=== PATIENT | female | born 1995 | race Two or more races ===

== ENCOUNTER 2017-10-20 03:41 | Emergency (ER) | payer OTHER ==
--- NOTE | 2017-10-20 04:50 | PDOC ---
History of Present Illness - General History Source: Patient Exam Limitations: No Limitations - History of Present Illness Initial Comments: 10/20/17 05:29 The patient is a 22 year old female with no significant PMH who presents to the emergency department with a sore throat for 4 days. The patient reports that she has been experiencing difficulty swallowing secondary to her sore throat. The patient states that she was seen at [facility] recently and was given supportive car. She states that she tried using over the counter medication with no apparent relief of her throat pain. The patient states that her left side of her throat is more painful than her right side. She denies any sick contact, cough or other symptoms. She denies any fever, chills, nausea, vomit, diarrhea, constipation or urinary symptoms. She denies any chest pain, shortness of breath, headache and dizziness. The patient denies any other complaints. PCP: Dr. Silver <Eric Gregory - Last Filed: 10/20/17 05:29> <Lu Conner - Last Filed: 10/20/17 06:23> - General Chief Complaint: Pain Stated Complaint: THROAT AND EAR PAIN Time Seen by Provider: 10/20/17 04:50 Past History <Eric Gregory - Last Filed: 10/20/17 05:29> - Past Medical History Asthma: Yes COPD: No - Suicide/Smoking/Psychosocial Hx Smoking History: Never smoked Have you smoked in the past 12 months: No Information on smoking cessation initiated: No Hx Alcohol Use: No Drug/Substance Use Hx: Yes (Marijuana) Substance Use Type: Marijuana <Lu Conner - Last Filed: 10/20/17 06:23> - Past Medical History Allergies/Adverse Reactions: Allergies Allergy/AdvReac Type Severity Reaction Status Date / Time No Known Allergies Allergy Verified 10/20/17 04:43 Home Medications: Ambulatory Orders Amoxicillin/Potassium Clav [Augmentin 875-125 Tablet] 1 each PO BID #20 tablet 10/20/17 Review of Systems - Review of Systems Able to Perform ROS?: Yes Comments:: 10/20/17 05:29 CONSTITUTIONAL: Absent: fever, chills, diaphoresis, generalized weakness, malaise, loss of appetite HEENT: (+)throat pain,difficulty swallowing Absent: rhinorrhea, nasal congestion, throat swelling,mouth swelling, ear pain, eye pain, visual Changes CARDIOVASCULAR: Absent: chest pain, syncope, palpitations, irregular heart rate, lightheadedness , peripheral edema RESPIRATORY: Absent: cough, shortness of breath, dyspnea with exertion, orthopnea, wheezing, stridor, hemoptysis GASTROINTESTINAL: Absent: abdominal pain, abdominal distension, nausea, vomiting, diarrhea, constipation, melena, hematochezia GENITOURINARY: Absent: dysuria, frequency, urgency, hesitancy, hematuria, flank pain, genital pain MUSCULOSKELETAL: Absent: myalgia, arthralgia, joint swelling SKIN: Absent: rash, itching, pallor HEMATOLOGIC/IMMUNOLOGIC: Absent: easy bleeding, easy bruising, lymphadenopathy, frequent infections ENDOCRINE: Absent: unexplained weight gain, unexplained weight loss, heat intolerance, cold intolerance NEUROLOGIC: Absent: headache, focal weakness or paresthesias, dizziness, unsteady gait, seizure, mental status changes, bladder or bowel incontinence PSYCHIATRIC: Absent: anxiety, depression, suicidal or homicidal ideation, hallucinations. <Eric Gregory - Last Filed: 10/20/17 05:29> *Physical Exam - Vital Signs Last Vital Signs Temp Pulse Resp BP Pulse Ox 101.6 F H 112 H 20 119/70 95 10/20/17 04:44 10/20/17 04:44 10/20/17 04:44 10/20/17 04:44 10/20/17 04:44 - Physical Exam Comments: 10/20/17 05:30 GENERAL: Well developed, well nourished. Awake and alert. No acute distress. HEENT: Normocephalic, atraumatic. PERRLA, EOMI. No conjunctival pallor. Sclera are non- icteric. Moist mucous membranes. Oropharynx is clear. No hot potato voice. No stridor or drooling NECK: (+)almost kissing tonsils, cervical lymphadenopathy Supple. Full ROM. No JVD. Carotid pulses 2+ and symmetric, without bruits. No thyromegaly. CARDIOVASCULAR: Regular rate and rhythm. No murmurs, rubs, or gallops. Distal pulses are 2+ and symmetric. PULMONARY: No evidence of respiratory distress. Lungs clear to auscultation bilaterally. No wheezing, rales or rhonchi. ABDOMINAL: Soft. Non-tender. Non-distended. No rebound or guarding. No organomegaly. Normoactive bowel sounds. MUSCULOSKELETAL Normal range of motion at all joints. No bony deformities or tenderness. No CVA tenderness. EXTREMITIES: No cyanosis. No clubbing. No edema. No calf tenderness. SKIN: Warm and dry. Normal capillary refill. No rashes. No jaundice. NEUROLOGICAL: Alert, awake, appropriate. Cranial nerves 2-12 intact. No deficits to light touch and temperature in face, upper extremities and lower extremities. No motor deficits in the in face, upper extremities and lower extremities. Normoreflexic in the upper and lower extremities. Normal speech. Toes are down- going bilaterally. Gait is normal without ataxia. PSYCHIATRIC: Cooperative. Good eye contact. Appropriate mood and affect. <Eric Gregory - Last Filed: 10/20/17 05:29> - Vital Signs Last Vital Signs Temp Pulse Resp BP Pulse Ox 101.6 F H 112 H 20 119/70 95 10/20/17 04:44 10/20/17 04:44 10/20/17 04:44 10/20/17 04:44 10/20/17 04:44 <Lu Conner - Last Filed: 10/20/17 06:23> ED Treatment Course - Medications Given in the ED: ED Medications Discontinued Medications Generic Name Dose Route Start Last Admin Trade Name Freq PRN Reason Stop Dose Admin Ibuprofen 600 mg 10/20/17 04:51 10/20/17 05:06 Motrin - PO 10/20/17 04:52 600 mg ONCE ONE Administration <Eric Gregory - Last Filed: 10/20/17 05:29> *DC/Admit/Observation/Transfer - Attestations Scribe Attestion: 10/20/17 05:30 Documentation prepared by Eric Gregory, acting as medical translator for Errol Will MD. <Eric Gregory - Last Filed: 10/20/17 05:29> <Lu Conner - Last Filed: 10/20/17 06:23> Diagnosis at time of Disposition: Tonsillitis with exudate - Discharge Dispostion Disposition: HOME - Prescriptions Prescriptions: Amoxicillin/Potassium Clav [Augmentin 875-125 Tablet] 1 each PO BID #20 tablet - Referrals Referrals: Haley Zepeda MD [Primary Care Provider] - Mitul Lopez MD [Staff Physician] - Call tomorrow - Patient Instructions Printed Discharge Instructions: DI for Pharyngitis/Tonsillopharyngitis -- Child Additional Instructions: Drink plenty of fluids Gargle with warm salty water Take ibuprofen every 6 hours as needed for pain Start Augmentin twice a day for 10 days Follow-up with ENT as soon as possible - Post Discharge Activity
[2017-10-20] MEDS ORDERED: IBUPROFEN 600 MG TABLET (FP) PO ONE ×2 (04:51→04:56)
[2017-10-20 05:12] VITALS: BMI 21.4
[2017-10-20] MEDS ORDERED: AMOX TR/POT CLAV 875MG/125MG TABLETS (FP) PO ONE (06:05)
[2017-10-20] MEDS ORDERED: DEXAMETHASONE SOD PHOSPHATE 10 MG/1 ML VIAL IM ONE (06:06)
--- NOTE | 2017-10-20 06:21 | PDOC ---
*Physical Exam - Vital Signs Last Vital Signs Temp Pulse Resp BP Pulse Ox 101.6 F H 112 H 20 119/70 95 10/20/17 04:44 10/20/17 04:44 10/20/17 04:44 10/20/17 04:44 10/20/17 04:44 ED Treatment Course - ADDITIONAL ORDERS Additional order review: 10/20/17 05:13 Group A Strep Rapid Antigen - Final Throat - Medications Given in the ED: ED Medications Discontinued Medications Generic Name Dose Route Start Last Admin Trade Name Sravani PRN Reason Stop Dose Admin Ibuprofen 600 mg 10/20/17 04:51 10/20/17 05:06 Motrin - PO 10/20/17 04:52 600 mg ONCE ONE Administration Medical Decision Making - Medical Decision Making 10/20/17 06:20 agree with care from MALA Conner *DC/Admit/Observation/Transfer Diagnosis at time of Disposition: Tonsillitis with exudate - Discharge Dispostion Disposition: HOME - Prescriptions Prescriptions: Amoxicillin/Potassium Clav [Augmentin 875-125 Tablet] 1 each PO BID #20 tablet - Referrals Referrals: Mitul Lopez MD [Staff Physician] - Call tomorrow Haley Zepeda MD [Primary Care Provider] - - Patient Instructions Printed Discharge Instructions: DI for Pharyngitis/Tonsillopharyngitis -- Child Additional Instructions: Drink plenty of fluids Gargle with warm salty water Take ibuprofen every 6 hours as needed for pain Start Augmentin twice a day for 10 days Follow-up with ENT as soon as possible - Post Discharge Activity
[2017-10-20] MEDS ORDERED: AMOX TR/POT CLAV 875MG/125MG TABLETS (FP) ONE (06:29)
[2017-10-20] MEDS ORDERED: DEXAMETHASONE SOD PHOSPHATE 10 MG/1 ML VIAL ONE (06:29)
[2017-10-20 06:54] VITALS: BP 111/67; PULSE 95; TEMP 99.5
== END 2017-10-20 06:53 | disposition home or self-care (01) ==
LOC: JER 03:41
PROC: 3E0233Z Introduction of Anti-inflammatory into Muscle, Percutaneous Approach (ICD-10-PCS; principal; 2017-10-20)
DX: J03.90 Acute tonsillitis, unspecified (principal)
CPT/HCPCS: 87070; 87430; 96372; 99282-25; J1100

== ENCOUNTER 2018-04-14 13:20 | Emergency (ER) | payer OTHER ==
[2018-04-14] MEDS ORDERED: ONDANSETRON 4 MG/2 ML VIAL IVPUSH ONE (13:52)
[2018-04-14] MEDS ORDERED: SODIUM CHLORIDE 1,000 ML IV STA (13:52)
--- NOTE | 2018-04-14 13:52 | PDOC ---
Rapid Medical Evaluation Medical Evaluation: Allergies Allergy/AdvReac Type Severity Reaction Status Date / Time No Known Allergies Allergy Verified 10/20/17 04:43 I have performed a brief in-person evaluation of this patient. The patient presents with a chief complaint of: C/O lower abdominal discomfort, NBNB emesis, watery diarrhea x 1 week; denies urinary complaints Pertinent physical exam findings: In NAD, abdomen soft, ND I have ordered the following: Labs, IVF, Zofran The patient will proceed to the ED for further evaluation. 04/14/18 13:49
[2018-04-14 13:58] VITALS: PULSE 76; BMI 23.1
[2018-04-14 15:06] LABS: BASO % 0.6 % (0-2.0); EOS % 2.1 % (0-4.5); HEMATOCRIT 34.2 % (32.4-45.2); HEMOGLOBIN 11.6 GM/dL (10.7-15.3); LYMPH % 15.8 % (8-40); MCHC 33.9 g/dl (32.0-36.0); MEAN CELL VOLUME 85.7 fl (80-96); MEAN PLT VOLUME 7.9 fl (7.5-11.1); MONO % 5.9 % (3.8-10.2); NEUT % 75.6 % (42.8-82.8); PLATELET COUNT 295 K/MM3 (134-434); RBC 3.99 M/mm3 (3.60-5.2); RDW 13.1 % (11.6-15.6); WHITE BLOOD COUNT 8.7 K/mm3 (4.0-10.0)
[2018-04-14] MEDS ORDERED: ONDANSETRON 4 MG/2 ML VIAL ONE (15:11)
[2018-04-14 15:20] LABS: ALK PHOS 46 U/L (45-117); ANION GAP 6 MMOL/L (8-16); BILIRUBIN,TOTAL 0.8 mg/dL (0.2-1); BLOOD UREA NITROGEN 6 mg/dL (7-18); CALCIUM 9.2 mg/dL (8.5-10.1); CHLORIDE 102 mmol/L (98-107); CO2 24 mmol/L (21-32); CREATININE 0.5 mg/dL (0.55-1.3); GLUCOSE,RANDOM 86 mg/dL (74-106); LIPASE 96 U/L (73-393); SGOT/AST 45 U/L (15-37); SGPT/ALT 21 U/L (13-61); SODIUM 133 mmol/L (136-145); TOT PROT 7.5 g/dl (6.4-8.2)
--- NOTE | 2018-04-14 15:28 | PDOC ---
History of Present Illness - General History Source: Patient Exam Limitations: No Limitations - History of Present Illness Initial Comments: 04/14/18 16:07 The patient is a 22 year old female, with no significant past medical history, who presents to the emergency department with, 1 week of subjective fevers, abdominal pain, nausea, vomiting (x6 episodes today), and diarrhea (x multiple episodes). Patient notes all of her friends are sick with similar symptoms. Patients LMP was early last month and she is unaware if she is . She denies blood in her emesis or feces. He denies any recent dysuria, frequency, urgency or hematuria. Allergies: NKA Primary Care Physician: Dr. Santos <Mando Vu - Last Filed: 04/14/18 16:07> <Lakhwinder Clancy - Last Filed: 04/14/18 17:47> - General Stated Complaint: NAUSEA/VOMITING Time Seen by Provider: 04/14/18 15:07 Past History <Mando Vu - Last Filed: 04/14/18 16:07> - Past Medical History Asthma: Yes COPD: No - Suicide/Smoking/Psychosocial Hx Smoking History: Current some day smoker Have you smoked in the past 12 months: No Information on smoking cessation initiated: No Hx Alcohol Use: No Drug/Substance Use Hx: Yes (star) Substance Use Type: Marijuana <Lakhwinder Clancy - Last Filed: 04/14/18 17:47> - Past Medical History Allergies/Adverse Reactions: Allergies Allergy/AdvReac Type Severity Reaction Status Date / Time No Known Allergies Allergy Verified 10/20/17 04:43 Home Medications: Ambulatory Orders NK [No Known Home Medication] 04/14/18 Review of Systems - Review of Systems Able to Perform ROS?: Yes Comments:: 04/14/18 16:08 "CONSTITUTIONAL: Present: Fever, Chills, Loss of Appetite HEENT: No reported: Rhinorrhea, Nasal Congestion, Throat Pain, Throat Swelling, Difficulty Swallowing, Mouth Swelling, Ear Pain, Eye Pain, Visual Changes CARDIOVASCULAR: No reported: Chest Pain, Syncope, Palpitations, Irregular Heart Rate, Lightheadedness, Peripheral Edema RESPIRATORY: No reported: Cough, Shortness of Breath, SOB with Exertion, Orthopnea, Wheezing , Stridor, Hemoptysis GASTROINTESTINAL: Present: Abdominal Pain, nausea, vomiting, diarrhea No reported: Abdominal Distension, Constipation, Melena, Hematochezia GENITOURINARY: No reported: Dysuria, Frequency, Urgency, Hesitancy, Flank Pain, Genital Pain MUSCULOSKELETAL: No reported: Myalgia, Arthralgia, Joint Swelling, Back pain, Neck Pain SKIN: No reported: Rash, Itching, Pallor HEMEATOLOGIC/IMMUNOLOGIC: No reported: Easy Bleeding, Easy Bruising, Lymphadenopathy, Frequent infections ENDOCRINE: No reported: Unexplained Weight Gain, Unexplained Weight Loss, Heat Intolerance , Cold Intolerance NEUROLOGIC: No reported: Headache, Focal Weakness, Paresthesias, Vertigo, Lightheadedness, Unsteady Gait, Seizure, Mental Status Changes, Incontinence PSYCHIATRIC: No reported: Anxiety, Depression " All Other Systems: Reviewed and Negative <Mando Vu - Last Filed: 04/14/18 16:07> *Physical Exam - Vital Signs Last Vital Signs Temp Pulse Resp BP Pulse Ox 98.4 F 76 20 1147/62 H 99 04/14/18 13:52 04/14/18 13:52 04/14/18 13:52 04/14/18 13:52 04/14/18 13:52 <Mando Vu - Last Filed: 04/14/18 16:07> - Vital Signs Last Vital Signs Temp Pulse Resp BP Pulse Ox 98.4 F 76 20 1147/62 H 99 04/14/18 13:52 04/14/18 13:52 04/14/18 13:52 04/14/18 13:52 04/14/18 13:52 - Physical Exam Comments: 04/14/18 15:55 GENERAL: The patient is awake, alert, and fully oriented, Nontoxic - in no acute distress. HEAD: Normocephalic, atraumatic. EYES: extraocular movements intact, sclera anicteric, conjunctiva clear. ENT: Normal voice, Moist mucous membranes. NECK: Normal range of motion, supple LUNGS: Breath sounds equal, clear to auscultation bilaterally. No wheezes, no rhonchi, no rales. HEART: Regular rate and rhythm, normal S1 and S2 without murmur, rub or gallop. ABDOMEN: Soft, nontender, normoactive bowel sounds. No guarding, no rebound. No CVA tenderness EXTREMITIES: Normal range of motion, no edema. No clubbing or cyanosis. No cords, erythema, or tenderness. NEUROLOGICAL: No facial assymetry, Normal speech PSYCH: Normal mood, normal affect. SKIN: Warm, Dry, normal turgor, <Lakhwinder Clancy - Last Filed: 04/14/18 17:47> Moderate Sedation - Procedure Monitoring Vital Signs: Procedure Monitoring Vital Signs Temperature 98.4 F 04/14/18 13:52 Pulse Rate 76 04/14/18 13:52 Respiratory Rate 20 04/14/18 13:52 Blood Pressure 1147/62 H 04/14/18 13:52 O2 Sat by Pulse Oximetry (%) 99 04/14/18 13:52 <Mando Vu - Last Filed: 04/14/18 16:07> - Procedure Monitoring Vital Signs: Procedure Monitoring Vital Signs Temperature 98.4 F 04/14/18 13:52 Pulse Rate 76 04/14/18 13:52 Respiratory Rate 20 04/14/18 13:52 Blood Pressure 1147/62 H 04/14/18 13:52 O2 Sat by Pulse Oximetry (%) 99 04/14/18 13:52 <Lakhwinder Clancy - Last Filed: 04/14/18 17:47> ED Treatment Course - LABORATORY CBC & Chemistry Diagram: 04/14/18 14:35 04/14/18 14:35 - ADDITIONAL ORDERS Additional order review: Laboratory Results 04/14/18 14:35 Sodium 133 L Potassium 5.0 Chloride 102 Carbon Dioxide 24 Anion Gap 6 L BUN 6 L Creatinine 0.5 L Creat Clearance w eGFR > 60 Random Glucose 86 Calcium 9.2 Total Bilirubin 0.8 AST 45 H ALT 21 Alkaline Phosphatase 46 Total Protein 7.5 Albumin 4.0 Lipase 96 04/14/18 14:35 RBC 3.99 MCV 85.7 MCHC 33.9 RDW 13.1 MPV 7.9 Neutrophils % 75.6 Lymphocytes % 15.8 Monocytes % 5.9 Eosinophils % 2.1 Basophils % 0.6 - Medications Given in the ED: ED Medications Discontinued Medications Generic Name Dose Route Start Last Admin Trade Name Freq PRN Reason Stop Dose Admin Sodium Chloride 1,000 mls @ 1,000 mls/hr 04/14/18 13:52 04/14/18 15:12 Normal Saline - IV 04/14/18 14:51 1,000 mls/hr ASDIR STA Administration Ondansetron HCl 4 mg 04/14/18 13:52 04/14/18 15:12 Zofran Injection IVPUSH 04/14/18 13:53 4 mg ONCE ONE Administration <Mando Vu - Last Filed: 04/14/18 16:07> - LABORATORY CBC & Chemistry Diagram: 04/14/18 14:35 04/14/18 14:35 - ADDITIONAL ORDERS Additional order review: Laboratory Results 04/14/18 14:35 Sodium 133 L Potassium 5.0 Chloride 102 Carbon Dioxide 24 Anion Gap 6 L BUN 6 L Creatinine 0.5 L Creat Clearance w eGFR > 60 Random Glucose 86 Calcium 9.2 Total Bilirubin 0.8 AST 45 H ALT 21 Alkaline Phosphatase 46 Total Protein 7.5 Albumin 4.0 Lipase 96 04/14/18 14:35 RBC 3.99 MCV 85.7 MCHC 33.9 RDW 13.1 MPV 7.9 Neutrophils % 75.6 Lymphocytes % 15.8 Monocytes % 5.9 Eosinophils % 2.1 Basophils % 0.6 - Medications Given in the ED: ED Medications Discontinued Medications Generic Name Dose Route Start Last Admin Trade Name Freq PRN Reason Stop Dose Admin Sodium Chloride 1,000 mls @ 1,000 mls/hr 04/14/18 13:52 04/14/18 15:12 Normal Saline - IV 04/14/18 14:51 1,000 mls/hr ASDIR STA Administration Ondansetron HCl 4 mg 04/14/18 13:52 04/14/18 15:12 Zofran Injection IVPUSH 04/14/18 13:53 4 mg ONCE ONE Administration <Lakhwinder Clancy - Last Filed: 04/14/18 17:47> Medical Decision Making - Medical Decision Making 04/14/18 15:27 22y F hx of asthma presents with 1 week of abdominal pain and diarrhea. Diarrhea has since resolved, associated with nausea / vomiting. unable to tolerate oral intkae, endorses subjective fevers, feels generalized weakness, vag bleeding. abd pain is crampy in nature and b/l Lower abdomen. several friends have simialr sypmtoms LMP early february, +sexually active 04/14/18 15:56 Differential for the patient's symptoms includes gastroenteritis, viral syndrome , Abdominal tenderness to suggest localized peritonitis Fluids, Zofran for symptomatic relief A portion of this note was documented by scribe services under my direction. I have reviewed the details of the note, within reason, and agree with the documentation with the following case summary and management plan written by me 04/14/18 15:56 04/14/18 16:57 Patient's blood work was reviewed the patient's urine test is positive will obtain a beta Will obtain ultrasound <Lakhwinder Clancy - Last Filed: 04/14/18 17:47> *DC/Admit/Observation/Transfer - Attestations Scribe Attestion: 04/14/18 16:09 Documentation prepared by Mando Vu, acting as registered medical assistant for Lakhwinder Clancy MD. <Mando Vu - Last Filed: 04/14/18 16:07> <Lakhwinder Clancy - Last Filed: 04/14/18 17:47> - Referrals Referrals: Haley Zepeda MD [Primary Care Provider] - - Patient Instructions - Post Discharge Activity
[2018-04-14 16:35] LABS: HCG,QUALITATIVE URINE Positive
[2018-04-14 20:11] LABS: URINE APPEARANCE CLEAR; URINE BILIRUBIN NEGATIVE (<2.0 mg/dL); URINE COLOR YELLOW; URINE GLUCOSE (UA) NEGATIVE (NEGATIVE); URINE KETONE 2+ (NEGATIVE); URINE LEUK ESTERASE NEGATIVE (NEGATIVE); URINE NITRITE NEGATIVE (NEGATIVE); URINE PROTEIN 1+ (NEGATIVE); URINE UROBILINOGEN NEGATIVE mg/dL (0.2-1.0)
[2018-04-14 20:14] LABS: EPI CELLS FEW /HPF (FEW); URINE HYALINE CAST 1 /lpf; URINE MUCUS FEW
--- NOTE | 2018-04-14 20:29 | PDOC ---
*Physical Exam - Vital Signs Last Vital Signs Temp Pulse Resp BP Pulse Ox 98.4 F 76 70 H 98/48 L 100 04/14/18 17:04 04/14/18 13:52 04/14/18 17:04 04/14/18 17:04 04/14/18 17:04 - Physical Exam Comments: 04/14/18 20:25 Gen: aaox3, nad sitting up eating a sandwich in NAD ED Treatment Course - LABORATORY CBC & Chemistry Diagram: 04/14/18 14:35 04/14/18 14:35 - ADDITIONAL ORDERS Additional order review: Laboratory Results 04/14/18 04/14/18 16:08 14:35 Sodium 133 L Potassium 5.0 Chloride 102 Carbon Dioxide 24 Anion Gap 6 L BUN 6 L Creatinine 0.5 L Creat Clearance w eGFR > 60 Random Glucose 86 Calcium 9.2 Total Bilirubin 0.8 AST 45 H ALT 21 Alkaline Phosphatase 46 Total Protein 7.5 Albumin 4.0 Lipase 96 Beta HCG, Quant 17728.0 Urine Color Yellow Urine Appearance Clear Urine pH 7.0 Ur Specific [place] 1.020 Urine Protein 1+ H Urine Glucose (UA) Negative Urine Ketones 2+ H Urine Blood Negative Urine Nitrite Negative Urine Bilirubin Negative Urine Urobilinogen Negative Ur Leukocyte Esterase Negative Urine WBC (Auto) 3 Urine RBC (Auto) 1 Ur Epithelial Cells Few Hyaline Casts 1 Urine Mucus Few Urine HCG, Qual Positive 04/14/18 14:35 RBC 3.99 MCV 85.7 MCHC 33.9 RDW 13.1 MPV 7.9 Neutrophils % 75.6 Lymphocytes % 15.8 Monocytes % 5.9 Eosinophils % 2.1 Basophils % 0.6 - Medications Given in the ED: ED Medications Discontinued Medications Generic Name Dose Route Start Last Admin Trade Name Freq PRN Reason Stop Dose Admin Sodium Chloride 1,000 mls @ 1,000 mls/hr 04/14/18 13:52 04/14/18 15:12 Normal Saline - IV 04/14/18 14:51 1,000 mls/hr ASDIR STA Administration Ondansetron HCl 4 mg 04/14/18 13:52 04/14/18 15:12 Zofran Injection IVPUSH 04/14/18 13:53 4 mg ONCE ONE Administration Medical Decision Making - Medical Decision Making 04/14/18 20:25 pt signed out pending ultrasound and beta 04/14/18 20:26 beta [id number] 04/14/18 20:26 IUP 6 weeks 4 days HR 144 discussed labs and imaging with the megant states she will buy vitamins feeling better tolerated po stable for dc to home *DC/Admit/Observation/Transfer Diagnosis at time of Disposition: Nausea/vomiting in - Discharge Dispostion Disposition: HOME Condition at time of disposition: Stable Decision to Admit order: No - Referrals Referrals: Haley Zepeda MD [Primary Care Provider] - Denice Mo MD [Staff Physician] - - Patient Instructions Printed Discharge Instructions: Medications and Additional Instructions: Please drink plenty of water. Please follow up with the improvement coordinator. Please take vitamins. Please avoid drinking/smoking. Please return to the ED with any further concerns or complaints. - Post Discharge Activity
[2018-04-14 20:40] VITALS: BP 118/72; TEMP 98.1
== END 2018-04-14 20:41 | disposition home or self-care (01) ==
LOC: JER 13:20
PROC: 3E033GC Introduction of Other Therapeutic Substance into Peripheral Vein, Percutaneous Approach (ICD-10-PCS; principal; 2018-04-14)
DX: O26.891 Other specified pregnancy related conditions, first trimester (principal); O21.0 Mild hyperemesis gravidarum; Z3A.01 Less than 8 weeks gestation of pregnancy
CPT/HCPCS: 36415; 76801-TC; 80053; 81003; 81015; 83690; 84702; 84703; 85025; 99283-25; J7030

== ENCOUNTER 2021-04-25 00:13 | Emergency (ER) | payer OTHER ==
[2021-04-25 00:18] VITALS: BP 116/72; PULSE 91; TEMP 99.7; BMI 22.3
[2021-04-28 17:08] LABS: SARS-CoV-2 NAA Detected (Not Detected)
== END 2021-04-25 04:27 | disposition home or self-care (01) ==
LOC: JER 00:13
DX: J06.9 Acute upper respiratory infection, unspecified (principal); M79.646 Pain in unspecified finger(s)
CPT/HCPCS: 87804; 87807; 99283-25; C9803; U0003; U0005

== ENCOUNTER 2023-08-02 20:59 | Emergency (ER) | payer OTHER ==
[2023-08-02 21:03] VITALS: BP 124/72; PULSE 82; RESP 18; TEMP 98.8; BMI 22.8
[2023-08-02] MEDS ORDERED: FLUORESCEIN NA 1 EA STRIP ONE (21:28)
[2023-08-02] MEDS ORDERED: TETRACAINE 0.5% OPHTH SOLN 2 ML BOTTLE ONE (21:28)
[2023-08-02] MEDS: FLUORESCEIN NA 1 EA STRIP OS ONE (21:31)
[2023-08-02] MEDS: TETRACAINE 0.5% HCL 0.6ML DROPPER.BOTTLE OS ONE (21:31)
[2023-08-02] MEDS ORDERED: ERYTHROMYCIN 0.5% OPHTHALMIC OINTMENT 3.5 GM TUBE ONE (22:02)
[2023-08-02] MEDS: ERYTHROMYCIN 0.5% OPHTHALMIC OINTMENT 3.5 GM TUBE OS ONE (22:33)
[2023-08-03] MEDS ORDERED: ERYTHROMYCIN 0.5% OPHTHALMIC OINTMENT 3.5 GM TUBE OS SCH (10:00)
[2023-08-03] MEDS ORDERED: ERYTHROMYCIN 0.5% OPHTHALMIC OINTMENT 3.5 GM TUBE OS ONE (22:02)
== END 2023-08-02 22:49 | disposition home or self-care (01) ==
LOC: JERFT 20:59
DX: S05.02XA Injury of conjunctiva and corneal abrasion without foreign body, left eye, initial encounter (principal); X58.XXXA Exposure to other specified factors, initial encounter
CPT/HCPCS: 99283-25

== ENCOUNTER 2023-10-28 02:04 | Emergency (ER) | payer OTHER ==
[2023-10-28 02:11] VITALS: BP 114/76; PULSE 88; RESP 20; TEMP 99.1; BMI 22.7
[2023-10-28] MEDS ORDERED: ACETAMINOPHEN 325 MG TABLET (FP) ONE (03:02)
[2023-10-28] MEDS: ACETAMINOPHEN 500 MG TABLET (FP) PO ONE (03:04)
[2023-10-28] MEDS ORDERED: FLUORESCEIN NA 1 EA STRIP ONE (03:05)
[2023-10-28] MEDS ORDERED: TETRACAINE 0.5% OPHTH SOLN 2 ML BOTTLE ONE (03:05)
[2023-10-28] MEDS: FLUORESCEIN NA 1 EA STRIP OS ONE (03:10)
[2023-10-28] MEDS: TETRACAINE 0.5% HCL 0.6ML DROPPER.BOTTLE OS ONE (03:10)
[2023-10-28] MEDS ORDERED: CIPROFLOXACIN 0.3% EYE DROPS 5 ML BOTTLE ONE (03:49)
[2023-10-28] MEDS: CIPROFLOXACIN 0.3% EYE DROPS 5 ML BOTTLE OS ONE (03:59)
== END 2023-10-28 04:29 | disposition home or self-care (01) ==
LOC: JER 02:04
DX: H16.002 Unspecified corneal ulcer, left eye (principal); H57.12 Ocular pain, left eye
CPT/HCPCS: 99283-25

== ENCOUNTER 2024-02-02 14:18 | Emergency (ER) | payer OTHER ==
[2024-02-02 14:24] VITALS: BP 117/80; PULSE 95; RESP 18; TEMP 99; BMI 21.9
[2024-02-02] MEDS ORDERED: ACETAMINOPHEN 500 MG TABLET (FP) ONE (15:57)
[2024-02-02] MEDS: ACETAMINOPHEN 500 MG TABLET (FP) PO ONE (16:03)
[2024-02-02] MEDS ORDERED: DIPHTH,PERTUSS(ACELL),TET 0.5 ML DISP.SYRIN IM ONE (17:13)
[2024-02-02] MEDS: DIPHTH,PERTUSS(ACELL),TET 0.5 ML DISP.SYRIN IM ONE (17:13)
== END 2024-02-02 17:40 | disposition home or self-care (01) ==
LOC: JERFT 14:18
PROC: 0HQ0XZZ Repair Scalp Skin, External Approach (ICD-10-PCS; principal; 2024-02-02)
PROC: 3E0234Z Introduction of Serum, Toxoid and Vaccine into Muscle, Percutaneous Approach (ICD-10-PCS; 2024-02-02)
DX: S01.01XA Laceration without foreign body of scalp, initial encounter (principal); R42 Dizziness and giddiness; W22.8XXA Striking against or struck by other objects, initial encounter; Y99.0 Civilian activity done for income or pay; Z23 Encounter for immunization
CPT/HCPCS: 70450-TC; 90715; 99284-25